=== PATIENT | female | born 1985 | race Caucasian/White ===

== ENCOUNTER 2020-05-17 16:05 | Emergency (ER) | payer MEDICAID ==
[~2020-05-17] VITALS: Ht 157.5 cm; Wt 62.0 kg
[2020-05-17] MEDS ORDERED: HYDROCODONE/ACETAMINOPHEN 5/325MG TABLET PO ONE (16:45)
[2020-05-17] MEDS ORDERED: BACITRACIN ZINC OINT UDPKT TOP ONE (17:00)
[2020-05-17] MEDS ORDERED: TETANUS, DIPHTHERIA, PERTUSSIS VAC/PF 0.5ML (>7YR OLD) IM ONE (17:00)
[2020-05-17] MEDS ORDERED: IBUPROFEN 600MG TABLET PO ONE (19:45)
[2020-05-17 20:22] VITALS: BP 145/99
== END 2020-05-17 20:50 | disposition short-term general hospital (02) ==
LOC: ER 16:05
DX: S01.81XA Laceration without foreign body of other part of head, initial encounter (principal); Z20.828 Contact with and (suspected) exposure to other viral communicable diseases; W19.XXXA Unspecified fall, initial encounter; Y93.89 Activity, other specified; Y92.89 Other specified places as the place of occurrence of the external cause; Y99.8 Other external cause status
CPT/HCPCS: 70450; 70486; 72125; 73590; 87635; 90471; 90715; 99285; C9803